=== PATIENT | female | born 1965 | race African-American/Black ===

== ENCOUNTER → 2017-04-19 | Outpatient (CLI) | payer OTHER ==
[2016-05-11 05:30] VITALS: BP 139/79
[~2017-04-19] MED LIST: LISI-338 PO
--- NOTE | 2017-04-19 12:52 | KCIC ---
Indication: Left lower extremity pain and swelling. Grayscale, color-flow and duplex Doppler evaluation of the left lower extremity venous system was performed. FINDINGS: There is no evidence of a left lower extremity DVT. The left lower extremity venous system demonstrates normal compressibility with normal response to augmentation and Valsalva. No soft tissue fluid collections are identified. IMPRESSION: No evidence of left lower extremity DVT. Electronically signed by: Pablo Reed MD (04/19/2017 12:49 PM) [id number]
== END | disposition home or self-care (01) ==
LOC: KCIC US 11:39
PROVIDERS: ATTEND Nurse Practitioner Family
DX: M79.605 Pain in left leg (principal); M79.89 Other specified soft tissue disorders
CPT/HCPCS: 93971

== ENCOUNTER → 2017-06-08 | Outpatient (CLI) | payer OTHER ==
[2016-05-11 05:30] VITALS: BP 139/79
--- NOTE | 2017-06-08 15:02 | RAD ---
DATE: 06/08/17 EXAM: DIGITAL SCREEN BILAT W/CAD HISTORY: Routine screening COMPARISON: None available. Patient is unable to recall the location of a previous mammogram which was more than 10 years ago This study was interpreted with the benefit of Computerized Aided Detection (CAD). TECHNIQUE: Routine CC and MLO views FINDINGS: Breast Density: FATTY The breast parenchyma is primarily fatty replaced. Breast parenchyma level density A.. No suspicious clustered microcalcifications, focal asymmetric densities or masses are seen. Skin and nipples are intact. Skin and nipples are intact IMPRESSION: Negative exam BI-RADS CATEGORY: 1 NEGATIVE RECOMMENDED FOLLOW-UP: 12M 12 MONTH FOLLOW-UP PQRS compliance statement: Patient information was entered into a reminder system with a target due date for the next mammogram. Mammography is a sensitive method for finding small breast cancers, but it does not detect them all and is not a substitute for careful clinical examination. A negative mammogram does not negate a clinically suspicious finding and should not result in delay in biopsying a clinically suspicious abnormality. "Our facility is accredited by the [employer] Mammography Program."
== END | disposition home or self-care (01) ==
LOC: MAMMO 13:58
PROVIDERS: ATTEND Nurse Practitioner Family
DX: Z12.31 Encounter for screening mammogram for malignant neoplasm of breast (principal)
CPT/HCPCS: G0202; 77067